=== PATIENT | female | born 1955 | race Caucasian/White ===

== ENCOUNTER 2020-04-06 16:00 | Emergency (ER) | payer OTHER, SELFPAY ==
--- NOTE | 2020-04-06 16:08 | ED.GENADULT ---
HPI - General Adult General Chief complaint: Urogenital-Female Stated complaint: Sore throat/urogenital-female Time Seen by Provider: 04/06/20 16:07 Source: patient Mode of arrival: ambulatory Limitations: no limitations History of Present Illness HPI narrative: 65-year-old female patient presents to the [facility] with complaints of pain with urination for the past 3 days 4 days as well as sore throat that started today. Patient states she has had a little bit of pain with urination for the past 3 or 4 days. Denies any fevers, body aches or chills. Denies any low back pain but states she has a little bit of lower abdominal discomfort at times. Denies any blood to the urine that she is aware of. Patient states she has been taking a lot more Epson salt baths lately which is what caused her UTI the last time. Patient also complaining of sore throat that started today. Patient states she had a sore throat about a week ago but gargled some warm salt water and did some honey and hot tea and it went away however it returned this morning when she woke up. Patient denies any cough, ear pain, runny nose or stuffy nose. Denies any fevers, body aches or chills. Related Data Home Medications Medication Instructions Recorded Confirmed ergocalciferol (vitamin D2) 04/06/20 [Vitamin D2] levetiracetam PO 04/06/20 levothyroxine 04/06/20 omeprazole 04/06/20 Allergies Allergy/AdvReac Type Severity Reaction Status Date / Time No Known Allergies Allergy Unknown Verified 04/06/20 16:13 Review of Systems Review of Systems: Narrative: CONSTITUTIONAL: Denies fever, chills, or sweats. EYES: Denies visual changes, redness, or discharge. ENT: Denies rhinorrhea, congestion, positive sore throat, or otalgia. CARDIOVASCULAR: Denies chest pain, palpitations, or edema. RESPIRATORY: Denies cough or dyspnea. GASTROINTESTINAL: Denies abdominal pain, nausea, vomiting, or diarrhea. GENITOURINARY: Denies dysuria or hematuria. Positive pain with urination x4 days SKIN: Denies rash or itching. MUSCULOSKELETAL: Denies back pain, joint pain, or myalgia. NEUROLOGIC: Denies headache, numbness, or weakness. PSYCHIATRIC: Denies anxiety or depression. PMFSH Comments At the time of my signature I agree with nursing past medical history, surgical, social, and family history. There is no relevant family history pertinent to the presenting complaint. Exam Narrative: Exam Narrative: GENERAL: Well-appearing, well-nourished, and in no acute distress. HEAD: Normocephalic, atraumatic. EYES: PERRLA and EOMI. ENT: Nares clear, no rhinorrhea or epistaxis. Mucous membranes moist. Posterior pharynx with no erythema, tonsillectomy, exudates or lesions present. Bilateral TMs are clear with no erythema or foreign bodies in the canal. NECK: Supple. No lymphadenopathy CHEST: Clear to auscultation. No respiratory distress. HEART: Regular rate and rhythm. No murmur heard. Normal peripheral pulses. ABDOMEN: Soft, nontender, nondistended, normal active bowel sounds. No CVA tenderness on percussion. EXTREMITIES: Normal range of motion. No edema. SKIN: Warm, dry, no rash. NEURO: No focal deficits. Alert and oriented x3. Course Vital Signs Vital signs: Vital Signs Temperature 37.5 C 04/06/20 16:14 Pulse Rate 93 04/06/20 16:14 Respiratory Rate 12 04/06/20 16:14 Blood Pressure 136/85 04/06/20 16:14 Pulse Oximetry 99 04/06/20 16:14 Temperature 37.5 C 04/06/20 16:14 Pulse Rate 93 04/06/20 16:14 Respiratory Rate 12 04/06/20 16:14 Blood Pressure 136/85 04/06/20 16:14 Pulse Oximetry 99 04/06/20 16:14 Vital signs reviewed. Medical Decision Making Differential Diagnosis Differential Diagnosis: Differential diagnosis: Uncomplicated lower UTI, uncomplicated UTI, pyelonephritis. Viral pharyngitis, pharyngitis, group A strep, infectious mononucleosis, gonococcal pharyngitis, exudative pharyngitis, oral candidiasis. Chronic allergies, po
[2020-04-06 16:14] VITALS: BP 136/85; PULSE 93; RESP 12; TEMP 37.5; O2SAT 99
== END 2020-04-06 16:52 | disposition home or self-care (01) ==
PROVIDERS: Emergency Provider Nurse Practitioner Family
DX: N30.01 Acute cystitis with hematuria (principal); J02.9 Acute pharyngitis, unspecified
CPT/HCPCS: 81003; 87081; 87086; 87088; 87880; 99213; G0463

== ENCOUNTER → 2020-06-10 10:32 | Outpatient (CLI) | payer OTHER, SELFPAY ==
--- NOTE | ~2020-06-10 | MM_ITS ---
EXAMINATION: MM screening [facility] BI w clay HISTORY: Screening TECHNIQUE: Craniocaudal and mediolateral oblique 3-D tomosynthesis images were obtained and synthetic 2-D images were generated. CAD analysis was submitted and interpreted. COMPARISON: Comparison to multiple prior studies sequentially, with oldest reviewed study dated 07/11. BREAST PARENCHYMAL COMPOSITION: There are scattered areas of fibroglandular density. FINDINGS: There is no evidence of suspicious mass, calcification, or architectural distortion to sugg est malignancy in either breast. There has been no suspicious interval change. IMPRESSION: 1. No mammographic evidence of malignancy. 2. Recommend routine screening mammography in one year. BI-RADS Category 1: Negative Reviewed, dictated and finalized at location A. KENER
== END ==
PROVIDERS: Visit Provider Nurse Practitioner
DX: Z12.31 Encounter for screening mammogram for malignant neoplasm of breast (principal)
CPT/HCPCS: 77063; 77067

== ENCOUNTER → 2021-08-18 13:13 | Outpatient (CLI) | payer MEDICARE, SELFPAY ==
--- NOTE | ~2021-08-18 | DEXA_ITS ---
Bone Density Report Name: JAKI RODRIGUEZ Age: 66 Sex: Female Ethnicity: White Date of : 1955 Indication: osteopenia; height loss; prior fracture; seizure disorder; postmenopausal Referring Provider: GILSON CONKLIN Study: Bone densitometry was performed. Exam Date: August 18, 2021 Accession number: [id number] Bone Density: Region BMD T-score Z-score Classification AP Spine (L1-L4) 1.180 1.2 3.0 Normal Femoral Neck (Left) 0.624 -2.0 -0.5 Osteopenia Total Hip (Left) 0.790 -1.2 0.0 Osteopenia Femoral Neck (Right) 0.615 -2.1 -0.6 Osteopenia Total Hip (Right) 0.828 -0.9 0.3 Normal Total Hip Mean 0.809 -1.1 0.2 Osteopenia World Health Organization criteria for BMD impression classify patients as: Normal (T-score at or above -1.0), Osteopenia (T-score between -1.0 and -2.5), or Osteoporosis (T-score at or below -2.5). 10-year Fracture Risk(1): Major Osteoporotic Fracture 17% Hip Fracture 2.6% Reported Risk Factors: [place] (), Neck BMD=0.615, BMI=30.3, previous fracture (1) FRAX(R) Version 3.08. Fracture probability calculated for an untreated patient. Fracture probability may be lower if the patient has received treatment. Previous Exams: Region Exam Age BMD T-score BMD Change BMD Change Date g/cm2 vs Baseline vs Previous AP Spine(L1-L4) 08/18/2021 66 1.180 1.2 -0.074* 0.026* 06/05/2019 64 1.153 1.0 -0.100* -0.071* 06/05/2016 61 1.224 1.6 -0.029* 0.024* 01/11/2013 57 1.200 1.4 -0.053* -0.053* 09/24/2008 53 1.254 1.9 Total Hip(Left) 08/18/2021 66 0.790 -1.2 -0.196* 0.001 06/05/2019 64 0.789 -1.3 -0.197* -0.040* 06/05/2016 61 0.829 -0.9 -0.157* -0.030* 01/11/2013 57 0.859 -0.7 -0.127* -0.127* 09/24/2008 53 0.987 0.4 Total Hip(Right) 08/18/2021 66 0.828 -0.9 -0.160* -0.027 06/05/2019 64 0.856 -0.7 -0.133* -0.055* 06/05/2016 61 0.910 -0.3 -0.078* -0.062* 01/11/2013 57 0.972 0.2 -0.016 -0.016 09/24/2008 53 0.988 0.4 *Denotes significance at 95% confidence level, LSC for AP Spine = 0.022 g/cm2, LSC for Total Hip = 0.027 g/cm2 Clinical Information Provided by Patient: Has had a low trauma fracture Has used the following medications: Vitamin D, MTV, TUMS Has the following medical conditions: Any Seizure Disorde
--- NOTE | ~2021-08-18 | MM_ITS ---
EXAMINATION: MM screening manuel BI w clay HISTORY: Screening TECHNIQUE: Craniocaudal and mediolateral oblique 3-D tomosynthesis images were obtained and synthetic 2-D images were generated. CAD analysis was submitted and interpreted. COMPARISON: Comparison to multiple prior studies sequentially, with oldest reviewed study dated 07/11. BREAST PARENCHYMAL COMPOSITION: Breast composed of scattered areas of fibroglandular density FINDINGS: There is no evidence of suspicious mass, calcification, or architectural distortion to sugg est malignancy in either breast. There has been no suspicious interval change. IMPRESSION: 1. No mammographic evidence of malignancy. 2. Recommend routine screening mammography in one year. BI-RADS Category 1: Negative Reviewed, dictated and finalized at location A. ORT OPERATIONS COORDINATOR
== END ==
PROVIDERS: Visit Provider Obstetrics & Gynecology Gynecology
DX: Z12.31 Encounter for screening mammogram for malignant neoplasm of breast (principal); Z78.0 Asymptomatic menopausal state
CPT/HCPCS: 77063; 77067; 77080

== ENCOUNTER → 2023-06-10 12:19 | Outpatient (CLI) | payer MEDICARE, SELFPAY ==
--- NOTE | ~2023-06-10 | MM_ITS ---
EXAMINATION: MM screening [facility] BI w clay HISTORY: Screening mammogram TECHNIQUE: Craniocaudal and mediolateral oblique 3-D tomosynthesis images were obtained and synthetic 2-D images were generated. CAD analysis was submitted and interpreted. COMPARISON: 08/18/2021, 06/10/2020, 06/05/2019 BREAST PARENCHYMAL COMPOSITION: The breasts are almost entirely fatty. FINDINGS: No suspicious mass, calcification, or architectural distortion are identified in either jie ast to suggest malignancy. There has been no suspicious interval change. IMPRESSION: 1. No mammographic evidence of malignancy. 2. Recommend routine screening mammography in one year. BI-RADS Category 1: Negative Reviewed, dictated and finalized at location A.
== END ==
PROVIDERS: Visit Provider Nurse Practitioner
DX: Z12.31 Encounter for screening mammogram for malignant neoplasm of breast (principal)
CPT/HCPCS: 77063; 77067

== ENCOUNTER 2025-06-04 14:05 | Outpatient (CLI) | payer MEDICARE, SELFPAY ==
--- NOTE | ~2025-06-04 | MM_ITS ---
EXAMINATION: MM screening manuel BI w clay HISTORY: Screening TECHNIQUE: Craniocaudal and mediolateral oblique 3-D tomosynthesis images were obtained and synthetic 2-D images were generated. CAD analysis was submitted and interpreted. COMPARISON: Comparison to multiple prior studies sequentially, with oldest reviewed study dated 06/14/2017. BREAST PARENCHYMAL COMPOSITION: Not dense: There are scattered areas of fibroglandular density. FINDINGS: There are groups nodular asymmetries which have developed in the upper outer quadrant of the right breast, middle third. The left breast is stable without evidence for malignancy. IMPRESSION: 1. Developing nodular asymmetries of the right breast. 2. Additional mammographic views and possible breast ultrasound are recommended. BI-RADS Category 0: Incomplete: Needs additional imaging evaluation. Reviewed, dictated and finalized at location B. IMPRESSION: 1. Developing nodular asymmetries of the right breast. 2. Additional mammographic views and possible breast ultrasound are recommended . BI-RADS Category 0: Incomplete: Needs additional imaging evaluation.
--- NOTE | ~2025-06-04 | DEXA_ITS ---
Bone Density Report Name: JAKI RODRIGUEZ Age: 70 Sex: Female Ethnicity: White Date of : 1955 Indication: osteopenia; height loss; seizure disorder; Referring Provider: GILSON CONKLIN Study: Bone densitometry was performed. Exam Date: June 04, 2025 Accession number: [id number] Bone Density: Region BMD T-score Z-score Classification AP Spine(L1-L4) 1.120 0.7 2.7 Normal Femoral Neck (Left) 0.660 -1.7 0.0 Osteopenia Total Hip (Left) 0.902 -0.3 1.1 Normal Femoral Neck (Right) 0.612 -2.1 -0.4 Osteopenia Total Hip (Right) 0.872 -0.6 0.9 Normal Total Hip Mean 0.887 -0.5 1.0 Normal World Health Organization criteria for BMD impression classify patients as: Normal (T-score at or above -1.0), Osteopenia (T-score between -1.0 and -2.5), or Osteoporosis (T-score at or below -2.5). 10-year Fracture Risk(1): Major Osteoporotic Fracture 11% Hip Fracture 2.2% Reported Risk Factors: [place] (), Neck BMD=0.612, BMI=34.6 (1) FRAX(R) Version 3.08. Fracture probability calculated for an untreated patient. Fracture probability may be lower if the patient has received treatment. Previous Exams: -- Region Exam Age BMD T-score BMD Change BMD Change Date g/cm2 vs Baseline vs Previous -- AP Spine (L1-L4) 06/04/2025 70 1.120 0.7 -10.6%* -5.0%* 08/18/2021 66 1.180 1.2 -5.9%* 2.3%* 06/05/2019 64 1.153 1.0 -8.0%* -5.8%* 06/05/2016 61 1.224 1.6 -2.3%* 2.0%* 01/11/2013 57 1.200 1.4 -4.3%* -4.3%* 09/24/2008 53 1.254 1.9 Total Hip(Left) 06/04/2025 70 0.902 -0.3 -8.6%* 14.1%* 08/18/2021 66 0.790 -1.2 -19.9%* 0.2% 06/05/2019 64 0.789 -1.3 -20.0%* -4.8%* 06/05/2016 61 0.829 -0.9 -16.0%* -3.5%* 01/11/2013 57 0.859 -0.7 -12.9%* -12.9%* 09/24/2008 53 0.987 0.4 Total Hip(Right) 06/04/2025 70 0.872 -0.6 -11.8%* 5.2%* 08/18/2021 66 0.828 -0.9 -16.2%* -3.2% 06/05/2019 64 0.856 -0.7 -13.4%* -6.0%* 06/05/2016 61 0.910 -0.3 -7.9%* -6.3%* 01/11/2013 57 0.972 0.2 -1.6% -1.6% 09/24/2008 53 0.988 0.4 -- *Denotes significance at 95% confidence level, LSC for AP Spine = 0.022 g/cm2, LSC for Total Hip = 0.027 g/cm2 Clinical Information Provided by Patient: Has used the following medications: Vitamin D Has the following medical conditions: Any Seizure Disorders Patient maximum height was 61 Menopause Age: 55 No regular weight bearing exercise Drinks caffeinated beverages Onset of menses at age 12 Number of children 0 Impression: The patient has low bone mass, based on the Right Femoral Neck T-score. The patient has an estimated ten-year risk of hip fracture of 2.2% and an estimated ten-year risk of major fracture of 11%, based on the WHO FRAX algorithm. The BMD for the AP Spine (L1-L4) decreased, changing by -5.0% since the last DXA exam. Discussion: BONE DENSITY IS LOW AT ONE OR MORE SKELETAL SITES. This patient's lowest T-score is low at one or more skeletal sites. It meets the World Health Organization's (WHO) criteria for ?low bone mass? (T-score between -1.0 and -2.5). The patient's 10-year risk of fracture as calculated by FRAX is less than the threshold where pharmacological therapy is recommended by the National Osteoporosis Foundation (NOF). However, all treatment decisions require clinical judgment and consideration of individual patient factors, including patient preferences, comorbidities, previous drug use, risk factors not captured in the FRAX model (e.g., frailty, falls, vitamin D deficiency, increased bone turnover, interval significant decline in bone density) and possible under or overestimation of fracture risk by FRAX. The patient should follow a healthful lifestyle (good nutrition with adequate calcium and vitamin D, and appropriate weight-bearing exercise). Follow-Up: Consider repeating this study in 2 years to reassess this patient's status, or sooner if there is some new clinical indication. Reported by: MARIA LUZ on 06/04/2025 2:49:00 PM. Reviewed, dictated and finalized at location A.
== END 2025-06-04 14:06 | disposition home or self-care (01) ==
PROVIDERS: Visit Provider Obstetrics & Gynecology Gynecology
DX: Z12.31 Encounter for screening mammogram for malignant neoplasm of breast (principal); R92.8 Other abnormal and inconclusive findings on diagnostic imaging of breast; M85.89 Other specified disorders of bone density and structure, multiple sites; Z78.0 Asymptomatic menopausal state
CPT/HCPCS: 77063; 77067; 77080

== ENCOUNTER 2025-08-06 08:38 | Outpatient (CLI) | payer MEDICARE, SELFPAY ==
--- NOTE | ~2025-08-06 | US_ITS ---
EXAMINATION: MM diagnostic manuel RT w clay and limited right breast ultrasound HISTORY: Additional imaging TECHNIQUE: Craniocaudal and mediolateral oblique 3-D tomosynthesis images were obtained and synthetic 2-D images were generated. CAD analysis was submitted and interpreted. Grayscale sonography over the area(s) of interest with color Doppler if there is a finding. COMPARISON: BREAST PARENCHYMAL COMPOSITION: Not Dense: The breasts are almost entirely fatty. MAMMOGRAM FINDINGS: There are multiple tiny nodules in the right upper outer quadrant. These have been seen on older prior studies as well. Some have even decreased in size. Decrease in size is indicative of a cyst. There are no suspicious calcifications. No unexplained architectural distortion is seen. There are no skin or nipple abnormalities identified. There is no adenopathy seen on the images submitted. ULTRASOUND FINDINGS: Sonography was performed through the superior half of the right breast and demonstrates multiple small, circumscribed, homogeneous, hyperechoic masses. The largest one is at 12:00 and has a maximum dimension of 12 mm. There is subtle, ill-defined hypoechoic region in the central aspect of this mass. IMPRESSION: Multiple echogenic masses, cysts of uncertain etiology. Many of these tiny nodules are stable from older prior mammograms, and some have been seen previously and have decreased in size. Mammographic correlation it is not definitive for all of the echogenic structures identified. These are of uncertain etiology. I would recommend ultrasound-guided core biopsy of the largest one (with the small hypoechoic area within it) at 12:00. BI-RADS 4 - Suspicious for malignancy. Tissue diagnosis is recommended. Reviewed, dictated and finalized at location C. ASH AND WASH OPERATOR IMPRESSION: Multiple echogenic masses, cysts of uncertain etiology. Many of these tiny nodu les are stable from older prior mammograms, and some have been seen previously and have decreased in size. Mammographic correlation it is not definitive for a ll of the echogenic structures identified. These are of uncertain etiology. I w ould recommend ultrasound-guided core biopsy of the largest one (with the small hypoechoic area within it) at 12:00. BI-RADS 4 - Suspicious for malignancy. Tissue diagnosis is recommended.
== END 2025-08-06 08:39 | disposition home or self-care (01) ==
LOC: MICIMG 08:39
PROVIDERS: Visit Provider Obstetrics & Gynecology Gynecology
DX: R92.8 Other abnormal and inconclusive findings on diagnostic imaging of breast (principal)
CPT/HCPCS: 76642; 77061; 77065; G0279